=== PATIENT | female | born 1970 | race African-American/Black ===

== ENCOUNTER 2021-08-01 15:01 | Outpatient (RCR) | payer OTHER, SELFPAY ==
--- NOTE | 2021-08-01 16:45 | REHOPWC ---
SEATING EVALUATION NOTIFICATION re: Petra Saleem ; 1970 This is to notify provider that Petra Saleem participated in a power mobility device evaluation today. Recommendations were made specific to patient's needs. Seating Assessment documentation has been completed for detailed information on required equipment. The mobility device provider for this case is [employer].. Please note that no further care plan will be developed on this account. Thank you for referring this patient to [facility]. Please review, sign, date and return this discharge summary TERESA. I have been updated about the patient's current status and I agree with discharge from the above service at this time. Referring Physician Date
== END 2021-10-18 11:59 | disposition home or self-care (01) ==
LOC: ANHPT 15:01
PROVIDERS: PCP Family Medicine; Visit Provider Family Medicine
DX: M54.16 Radiculopathy, lumbar region (principal); M79.7 Fibromyalgia; E11.9 Type 2 diabetes mellitus without complications; R32 Unspecified urinary incontinence
CPT/HCPCS: 97163

== ENCOUNTER 2025-09-04 13:48 | Emergency (ER) | payer OTHER, SELFPAY ==
--- NOTE | ~2025-09-04 | CT_ITS ---
CT abdomen pelvis w con INDICATION:abd pain, flank pain . COMPARISON: None. TECHNIQUE: Axial images of the abdomen and pelvis were obtained following infusion of 100 mL Isovue 300. Dose optimization technique was utilized. FINDINGS: The lung bases are clear. The liver parenchyma is unremarkable. No intrahepatic mass or ductal dilatation is evident. The gallbladder is unremarkable. The pancreas and spleen are normal in appearance. The adrenal glands are symmetric in size. The kidneys demonstrate symmetric uptake and excretion of contrast. No cystic mass is evident. There is no solid mass. There is no hydronephrosis. Evaluation of the stomach and bowel loops are limited due to lack of oral contrast. The appendix is normal in appearance. The bladder and rectum are normal. No free intraperitoneal fluid or air is evident. There is no significant retroperitoneal lymphadenopathy. The aorta, visceral vessels and renal arteries demonstrate normal caliber and patency. The lower thoracic and lumbar vertebrae are in normal alignment. IMPRESSION: No acute abnormality is noted in the abdomen and pelvis. All CT scans at this facility are performed using low dose modulation techniques as appropriate to perform exam including the following: automated exposure control; use of iterative reconstruction technique; adjustment of the mA and/or kV according to patient size (this includes techniques or standardized protocols for targeted exams where dose is matched to indication/reason for exam). Reviewed, dictated and finalized at location S. IMPRESSION: No acute abnormality is noted in the abdomen and pelvis. All CT scans at this facility are performed using low dose modulation techniqu es as appropriate to perform exam including the following: automated exposure c ontrol; use of iterative reconstruction technique; adjustment of the mA and/or kV according to patient size (this includes techniques or standardized protocol s for targeted exams where dose is matched to indication/reason for exam).
[2025-09-04 13:49] VITALS: BP 130/77; PULSE 68; RESP 16; TEMP 36.4; O2SAT 96
--- OUTSIDE RECORDS SUMMARY | 2025-09-04 13:52 | XMS_ITS | Clinical Summary ---
Author Organization [facility] [employer] Address [address] [place] [address] Care Team Providers Care Etl Software Engineer Name Role Phone Carlos A Amezcua Primary Care Provider [phone] Source Comments [facility] [employer],non-owned Affiliates and Associated Physician Practices is amultiple site organization consisting of ambulatory clinics and hospital sitesin [place], [place], [place] and [place]. This disclosure is being madepursuant to the Care Everywhere program and may not contain all information available regarding this patient. Last updated 18.[facility] [employer] Allergies No known active allergies Medications * Be aware that medications may not be up to date on this document. Alwaysverify current medications with the patient. traZODone (DESYREL) 100 MG tablet Take by mouth. 7 Active sertraline (ZOLOFT) 100 MG tablet Take by mouth BID. 7 Active triamcinolone acetonide (KENALOG) 0.1 % cream 7 Active mupirocin (BACTROBAN) 2 % ointment 7 Active insulin regular human (NOVOLIN R) 100 UNIT/ML injection 2 7 Active vitamin D3-cholecalcif solo (CHOLECACIFERO L) 1000 UNITS tablet 0 7 Active atorvastatin (LIPITOR) 10 MG tablet 2 7 Active polyethylene glycol 3350 (MIRALAX) powder 11 7 Active Flunisolide HFA (AEROSPAN) 80 MCG/ACT 6 7 Active dicyclomine (BENTYL) 10 MG capsule 2 7 Active cloNIDine (CATAPRES) 0.1 MG tablet 2 7 Active pioglitazone (ACTOS) 15 MG tablet 0 7 Active losartan-hydro CHLOROthiazide (HYZAAR) 100-25 MG tablet 2 7 Active ondansetron (ZOFRAN) 4 MG tablet 0 7 Active nitroGLYCERIN (NITROSTAT) 0.4 MG tablet 2 7 Active montelukast (SINGULAIR) 10 MG tablet 5 7 Active Aspirin (ASPIRIN LOW DOSE) 81 MG 2 7 Active nystatin (MYCOSTATIN) 694597 UNIT/ML suspension 0 7 Active ferrous sulfate 325 (65 FE) MG tablet 2 7 Active Cholecalcifero l (VITAMIN D3) 400 UNITS tablet Take 400 Units by mouth DAILY. 30 tablet 0 6 Active insulin glargine (LANTUS) vial Inject 50 Units subcutaneously. 10 mL 3 6 Active albuterol-ipra tropium (COMBIVENT RESPIMAT) 20-100 MCG/ACT inhaler Inhale 1 puff by mouth 4X/day. 1 Inhaler 2 6 Active fluticasone propionate (FLONASE) 50 MCG/ACT nasal spray USE 2 SPRAYS NASALLY QD FOR 90 DAYS 0 8 Active meclizine (ANTIVERT) 25 MG tablet TK 1 T PO TID 0 8 Active cetirizine (ZYRTEC) 10 MG tablet TK 1 T PO QD 1 8 Active baclofen (LIORESAL) 10 MG tablet Take 1 tablet by mouth 3 times daily 90 tablet 5 8 Active albuterol (PROVENTIL;DUANE TOLIN) (2.5 MG/3ML) 0.083% nebulizer solution 9 Active VENTOLIN HFA 108 (90 Base) MCG/ACT inhaler 9 Active amLODIPine (NORVASC) 5 MG tablet 9 Active bacitracin (BACITRACIN) 500 UNIT/GM ointment 9 Active Cholestyramine 4 GM/DOSE 9 Active cyclobenzaprin e (FLEXERIL) 10 MG tablet 9 Active fluconazole (DIFLUCAN) 150 MG tablet 9 Active fluticasone-sa lmeterol 113-14 MCG/ACT inhaler 9 Active BASAGLAR KWIKPEN (BASAGLAR) pen 9 Active B-D ULTRAFINE III SHORT PEN 31G X 8 MM needle 9 Active miconazole (MONISTAT) 2 % vaginal cream 9 Active nicotine (NICODERM CQ) 21 MG/24HR patch 9 Active temazepam (RESTORIL) 30 MG capsule 9 Active triamcinolone acetonide (KENALOG) 0.5 % cream 9 Active DULoxetine (CYMBALTA) 60 MG capsule TAKE 1 CAPSULE BY MOUTH EVERY DAY 30 capsule 5 9 Active RANITIDINE 150 MAX STRENGTH 150 MG tablet Take 20 mg by mouth once daily 0 Active DULoxetine (Cymbalta) 60 MG capsule TAKE 1 CAPSULE BY MOUTH TWICE DAILY 60 capsule 2 3 Active ammonium lactate (Lac-Hydrin) 12 % lotion 4 Active bacitracin ointment 4 Active Blood Glucose Monitoring Suppl (Driveway Software Verio Flex System) w/Device KIT as directed 4 Active Symbicort 160-4.5 MCG/ACT inhaler Inhale 2 (two) puffs by mouth 2 times daily 4 Active cimetidine (Tagamet) 400 MG tablet Take 1 (one) tablet by mouth 2 times daily 5 Active docusate sodium (Colace) 100 MG capsule Take 1 (one) capsule by mouth 2 times daily 5 Active Dulaglutide (Trulicity) 1.5 MG/0.5ML SOPN 3 Active Jardiance 25 MG tablet Take 1 (one) tablet by mouth once daily 4 Active vitamin D, ergocalciferol , (Drisdol) 1.25 MG (36231 UT) capsule ergocalciferol (vitamin D2) 1,250 mcg (50,000 unit) capsule 1 Active ezetimibe (Zetia) 10 MG tablet ezetimibe 10 mg tablet 3 Active famotidine (Pepcid) 40 MG tablet 3 Active furosemide (Lasix) 20 MG tablet 5 Active OneTouch Verio test strip 5 Active HYDROcodone-ac etaminophen (Calion) 7.5-325 MG tablet Take 1 (one) tablet by mouth every 6 hours as needed pain 5 Active lamoTRIgine (LaMICtal) 25 MG tablet TAKE 1 TABLET BY MOUTH EVERY DAY FOR 15 DAYS 4 Active Lancets (ONETOUCH DELICA PLUS 33G EXTRA FINE LANCET) 5 Active lidocaine (Lidoderm) 5 % patch 4 Active lurasidone (Latuda) 20 MG tablet TAKE 1 TABLET BY MOUTH EVERY DAY WITH MEALS 4 Active metoprolol succinate XL 24hr (Toprol XL) 50 MG tablet 5 Active ondansetron, disintegrating , (Zofran ODT) 4 MG tablet DISSOLVE 1 TABLET ON THE TONGUE TWICE DAILY 5 Active pantoprazole EC (Protonix) 40 MG tablet 5 Active polyethylene glycol (Nulytely) 420 g solution TAKE DIRECTED BY OFFICE 3 Active phentermine (Adipex-P) 37.5 MG tablet phentermine 37.5 mg tablet 1 Active promethazine (Phenergan) 25 MG tablet TAKE 1/2 TABLET BY MOUTH EVERY 6 HOURS NEEDED FOR NAUSEA 3 Active rosuvastatin (Crestor) 40 MG tablet rosuvastatin 40 mg tablet 3 Active Spiriva HandiHaler 18 MCG inhalation capsule 4 Active Incruse Ellipta 62.5 MCG/ACT inhaler Inhale 1 (one) puff by mouth once daily 4 Active gabapentin (Neurontin) 600 MG tablet 5 Active DULoxetine (Cymbalta) 60 MG capsule Take 1 (one) capsule by mouth 2 times daily 180 capsule 4 5 Active gabapentin (Neurontin) 600 MG tablet Take 1 (one) tablet by mouth 3 times daily 270 tablet 4 5 Active Active Problems Problem Noted Date Diagnosed Date Cerebral infarction, unspecified 11/26/2019 Carpal tunnel syndrome 08/21/2019 Atherosclerotic heart diseas e of [place] coronary artery without angina pectoris 08/21/2019 Type 2 diabetes mellitus with diabetic polyneuro tony 09/11/2017 Type 2 diabetes mellitus with diabetic neuropath y 07/30/2017 Other symptoms and signs inv olving the musculoskeletal system 07/21/2016 Anaclitic depression 02/13/2014 Angina pectoris 02/13/2014 Arthritis 02/13/2014 Encounters Date Type Department Care Team Description 07/21/2025 9:30 AM CDT Office Visit [facility] - Neurology [address] [place] [phone] Lizbeth Painter MD Idiopathic peripheral neuropathy (Primary Dx); Small fiber neuropathy 07/21/2025 Travel from Last 3 Months Immunizations Immunization Administration Dates Next Due PNEUMOCOCCAL PPSV23 10/02/2016 Family History Medical History Relation Name Comments Depression Neg Hx Seizures Neg Hx Social History Tobacco Use Types Packs/Day Years Used Date Smoking Tobacco: Every Day Cigarettes Smokeless Tobacco: Never Alcohol Use Standard Drinks/Week Comments No 0 (1 standard drink = 0.6 oz pur e alcohol) AUDIT-C Answer Date Recorded Q1: How often do you have a drink containing alcohol? Never 07/23/2022 Q2: How many drinks containi ng alcohol do you have on a typical day when you are drinking? Patient does not drink Q3: How often do you have si x or more drinks on one occasion? 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 Gender Identity Not on file Sexual Orientation Not on file Last Filed Vital Signs Vital Sign Reading Time Taken Comments Blood Pressure 129/86 07/21/2025 9:57 AM CDT Pulse 80 07/21/2025 9:57 AM CDT Temperature 36.3 C (97.3 F) 07/14/2024 6:21 PM CDT Respiratory Rate 18 07/14/2024 10:00 PM CDT Oxygen Saturation 98% 07/21/2025 9:57 AM CDT Inhaled Oxygen Concentration - - Weight 117.9 kg (260 lb) 07/21/2025 9:57 AM CDT Height 175.3 cm (5' 9) 07/21/2025 9:57 AM CDT Body Mass Index 38.4 07/21/2025 9:57 AM CDT Plan of Treatment Health Maintenance Due Date Last Done Comments COLOGUARD (AGES 45-75) - COLON CA SCREENING 1972 COLON MONITORING 1972 COLONOSCOPY - COLON CA SCREENING 1972 CT COLONOGRAPHY - COLON CA SCREENING 1972 Colorectal Cancer Screening 1972 FIT - COLON CA SCREENING 1972 FLEX SIG - COLON CA SCREENING 1972 HIV SCREENING 1987 HEPATITIS C SCREENING 06/11/1990 DTAP/TDAP/TD VACCINES (1 - Tdap) 1991 HEPATITIS B VACCINE (1 of 3 - 19+ 3-dose series) 1991 PAP SMEAR 1993 PNEUMOCOCCAL VACCINE 50+ (2 of 2 - PCV) 10/02/2017 10/02/2016 DIABETES RETINOPATHY SCREENING 05/06/2019 DIABETES-FOOT EXAM WITH MONOFILAMENT 05/06/2019 ZOSTER VACCINE (1 of 2) 2022 DIABETES-HGB A1C 08/27/2022 02/25/2022 DEPRESSION SCREENING 11/19/2024 DIABETES - URINE PROTEIN SCREENING 11/19/2024 DIABETES-SERUM CREATININE 07/14/20252023, 03/19/2024, 07/23/2022, Additional history exists COVID-19 VACCINE (2024- season) 2025 01/21/2022, 02/21/2021, 01/28/2021 INFLUENZA VACCINE (#1) 2025 9, 10/15/2017, 12/13/2015 MAMMOGRAM 10/10/2026 10/10/2024, 09/20, 06/13/2016, Additional history exists HIB VACCINE Aged Out No longer eligi ble based on patient's age to complete this topic HPV VACCINE Aged Out No longer eligi ble based on patient's age to complete this topic MENINGOCOCCAL (Group B) VACCINE SHARED DECISION-MAKING Aged Out No longer eligible based on patient's age to complete this topic MENINGOCOCCAL GROUPS A/C/Y/W VACCINE Aged Out No longer eligible based on patient's age to complete this topic Procedures Procedure Name Priority Date/Time Associated Diagnosis Comments COMPREHENSIVE METABOLIC PANEL STAT 07/14/2024 7:53 PM CDT from Last 3 Months or Most Recently Relevant to Health Maintenance Results * (ABNORMAL) COMPREHENSIVE METABOLIC PANEL (07/14/2024 7:53 PM CDT) BUN 10 7 - 26 mg/dL 07/14/2024 8:18 PM [facility] Creatinine 0.76 0.56 - 0.96 mg/dL 07/14/2024 8:18 PM [facility] Sodium 139 136 - 145 mmol/L 07/14/2024 8:18 PM [facility] Potassium 3.8 3.5 - 4.5 mmol/L 07/14/2024 8:18 PM [facility] Chloride 106 98 - 107 mmol/L 07/14/2024 8:18 PM [facility] CO2 27 22 - 29 mmol/L 07/14/2024 8:18 PM [facility] Glucose 143(H) 70 - 115 mg/dL 07/14/2024 8:18 PM [facility] Calcium 10.0 8.4 - 10.2 mg/dL 07/14/2024 8:18 PM [facility] Protein Total 7.8 6.0 - 8.3 g/dL 07/14/2024 8:18 PM [facility] Albumin 3.7 3.4 - 5.0 g/dL 07/14/2024 8:18 PM [facility] Bilirubin Total 0.3 0.2 - 1.2 mg/dL 07/14/2024 8:18 PM [facility] Alkaline Phosphatase 88 40 - 150 U/L 07/14/2024 8:18 PM [facility] ALT 7 5 - 55 U/L 07/14/2024 8:18 PM [facility] AST 15 5 - 34 U/L 07/14/2024 8:18 PM [facility] Anion Gap 6 6 - 16 07/14/2024 8:18 PM [facility] BUN/Creatinine Ratio 13 7 - 23 07/14/2024 8:18 PM [facility] Osmolality Calculated 290 275 - 295 mOsm/kg 07/14/2024 8:18 PM [facility] Albumin/Globulin Ratio 0.9(L) 1.1 - 2.3 07/14/2024 8:18 PM [facility] eGFR by CKD-EPI >90 >=90 mL/min/1.7 3 m2 07/14/2024 8:18 PM [facility] Blood BLOOD SPECIMEN / Unknown Venipuncture / Unknown 07/14/2024 7:53 PM CDT 07/14/2024 8:05 PM [facility] Enrique Estrada PA-C LAB - CHEMISTRY OR DERABLES Final Result [facility] [address] [place] [address], [facility] [phone] from Last 3 Months or Most Recently Relevant to Health Maintenance Insurance [facility] Care Teams Etl Software Engineer Relationship Specialty Start Date End Date Carlos A Amezcua [address] [place] [phone] PCP - General 11/06/17
--- OUTSIDE RECORDS SUMMARY | 2025-09-04 13:52 | XMS_ITS | Encounter Summary ---
Author Organization [facility] Address [address] [place] [address] Care Team Providers Care Dampener Name Role Phone Carlos A Amezcua Primary Care Provider [phone] Reason for Referral * Consultation (Routine) - Closed Specialty Diagnoses / Procedures Referred By Tiki rosa Referred To Contact Neurology Diagnoses New daily persistent headache Carlos A Amezcua [address] [place] [address] Phone: tel: fax: [facility] - Neurology [address] [place] [phone] Phone: tel: fax: Referral ID Status Reason Start Date Expiration Date V isits Requested Visits Authorized [id number] Closed Specialty Services Required 10/21/2024 10/21/2025 1 1 TRUCTION REP Encounter Details Date Type Department Care Team (Latest Contact Info) Description 10/21/2024 Transcribe Orders [facility] - Centralized Scheduling [facility]ly [facility] [place] [id number] Carlos A Amezcua [address] [place] [address] New daily persistent headache Social History Tobacco Use Types Packs/Day Years [...] on file 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 Gender Identity Not on file Sexual Orientation Not on file documented as of this encounter Plan of Treatment Scheduled Referrals Name Type Priority Associated Diagnoses Order Schedule AMB REFERRAL TO NEUROLOGY Outpatient Referral Routine New daily persistent headache 1 Occurrences starting 10/21/2024 until 10/21/2025 documented as of this encounter Visit Diagnoses Diagnosis New daily persistent headache- Primary documented in this encounter Care Teams Dampener Relationship Specialty Start Date End Date Carlos A Amezcua [address] [place] [phone] PCP - General 11/06/17 documented as of this encounter
--- OUTSIDE RECORDS SUMMARY | 2025-09-04 13:52 | XMS_ITS | Encounter Summary ---
Author Organization [facility] Address [address] [facility] [place] [address] Care Team Providers Care Maintenance Man Name Role Phone Carlos A Amezcua Primary Care Provider [phone] Encounter Details Date Type Department Care Team (Late st Contact Info) Description 10/31/2023 Telephone [facility] - Neurology [address] [place] [address], [facility] [address] Lizbeth Painter MD [address] [place] [address] [place] [address] Social History Tobacco Use Types Packs/Day Years [...] on file 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 We received a medication refill request from this patient's pharmacy for Duloxetine 60 MG. Patient needs follow up appointment with Dr. Painter before her medications can be refilled. Thank you, Jose Carlos TMENT HOTEL MANAGER documented in this encounter Plan of Treatment Not on file documented as of this encounter Visit Diagnoses Not on filedocumented in this encounter Additional Health Concerns Infection Onset Date Last Indicated Resolved Time COVID-19 Under Investigation 07/14/2024 07/14/2024 07/14/2024 8:43 PM CDT documented as of this encounter Care Teams Maintenance Man Relationship Specialty Start Date End Date Carlos A Amezcua [address] [place] [phone] PCP - General 11/06/17 documented as of this encounter
--- OUTSIDE RECORDS SUMMARY | 2025-09-04 13:52 | XMS_ITS | Clinical Summary ---
Author Organization [facility] Address [address] [place] [address] Care Team Providers Care Service Architect Name Role Phone Carlos A Amezcua MD Primary Care Provider [phone] Allergies No known active allergies Medications ondansetron (ZOFRAN ODT) 4 MG disintegrating tablet Take 1 tablet (4 mg total) by mouth every 8 (eight) hours as needed for Nausea. 15 tablet 11/14/20 18 Active HYDROcodone-acetam inophen 7.5-325 MG tabletIndications: Acute Pain < 7 Day Supply Take 1 tablet by mouth every 6 (six) hours as needed for Pain. Indications: Acute Pain < 7 Day Supply 15 tablet 03/05/20 21 Active traZODone 100 MG tablet TAKE 3 TABLET BY MOUTH EVERY NIGHT AT BEDTIME 06/14/20 21 Active gabapentin 300 MG capsule 05/15/20 21 Active furosemide 20 MG tablet 06/17/20 21 Active famotidine 20 MG tablet Take 20 mg by mouth 2 (two) times daily. 05/16/20 21 Active ferrous sulfate, 65 mg elemental, (FEROSUL) 325 (65 FE) MG tablet 06/11/20 20 Active vitamin D2, ergocalciferol, 92167 UNITS capsule Take 50,000 Units by mouth once a week. 06/12/20 21 Active DULoxetine 60 MG capsule Take 60 mg by mouth 2 (two) times daily. 03/15/20 21 Active cyclobenzaprine 10 MG tablet TAKE 1 TABLET BY MOUTH EVERY 8 HOURS NEEDED FOR MUSCLE SPASM 05/16/20 21 Active docusate sodium 100 MG capsule 04/14/20 21 Active dicyclomine 10 MG capsule 06/11/20 21 Active cloNIDine 0.1 MG tablet Take 0.1 mg by mouth 2 (two) times daily. 05/29/20 21 Active cimetidine 400 MG tablet Take 400 mg by mouth 2 (two) times daily. 06/12/20 21 Active cetirizine 10 MG tablet 06/17/20 21 Active SYMBICORT 160-4.5 MCG/ACT inhaler 2 puffs 2 (two) times daily. 05/25/20 21 Active baclofen 10 MG tablet 05/15/20 21 Active atorvastatin 10 MG tablet 06/17/20 21 Active ASPIRIN LOW DOSE 81 MG tablet 06/17/20 21 Active amLODIPine 10 MG tablet 06/17/20 21 Active ALPRAZolam 0.25 MG tablet Take 0.25 mg by mouth 3 (three) times daily. 05/01/20 21 Active albuterol (2.5 MG/3ML) 0.083% nebulizer solution 06/17/20 21 Active BASAGLAR KWIKPEN 100 UNIT/ML injection (PEN) ADMINISTER 30 UNITS UNDER THE SKIN EVERY DAY AT BEDTIME 06/03/20 21 Active NOVOLIN R 100 UNIT/ML injection INJECT 10 UNITS UNDER THE SKIN 3 TIMES DAILY 05/17/20 21 Active losartan 50 MG tablet 06/17/20 21 Active meclizine 25 MG tablet 05/19/20 21 Active metoprolol succinate ER 50 MG 24 hr tablet 06/17/20 21 Active nystatin 014027 UNIT/ML suspension SHAKE LIQUID AND TAKE 5 ML BY MOUTH FOUR TIMES DAILY FOR 10 DAYS 04/28/20 21 Active phentermine 37.5 MG tablet phentermine 37.5 mg tablet 06/15/20 21 Active Semaglutide (RYBELSUS) 3 MG Tab 09/02/20 20 Active Social History Tobacco Use Types Packs/Day Years Used Date Smoking Tobacco: Every Day Cigarettes Smokeless Tobacco: Never Alcohol Use Standard Drinks/Week Comments No 0 (1 standard drink = 0.6 oz pur e alcohol) AUDIT-C Answer Date Recorded Frequency of Alcohol Consumption Never 11/14/2018 Average Number of Drinks Not on file 018 Frequency of Binge Drinking Not on file 10/20 Comments No Sex and Gender Information Value Date Recorded Sex Assigned at Not on file Legal Sex Female 11:55 PM CDT Gender Identity Not on file Sexual Orientation Not on file Last Filed Vital Signs Vital Sign Reading Time Taken Comments Blood Pressure 154/89 06/18/2021 6:03 PM CDT Pulse 75 06/18/2021 8:30 PM CDT Temperature 37 C (98.6 F) 06/18/2021 6:03 PM CDT Respiratory Rate 19 06/18/2021 8:30 PM CDT Oxygen Saturation 95% 06/18/2021 8:30 PM CDT Inhaled Oxygen Concentration - - Weight 141.2 kg (311 lb 4.6 oz) 06/18/2021 6:03 PM CDT Height 175.3 cm (5' 9) 06/18/2021 6:03 PM CDT Body Mass Index 45.97 06/18/2021 6:03 PM CDT Plan of Treatment Health Maintenance Due Date Last Done Comments Cervical Cancer Screening Pa p Smear (Age 30 to 64) Every 3 Years 1972 Colorectal Cancer Screening Colonoscopy (10 Years) 1972 Annual Physical 1975 Hepatitis C 1990 DTaP, Tdap and Td Vaccines ( 1 - Tdap) 1991 Hepatitis B Vaccines (1 of 3 - 19+ 3-dose series) 1991 Pneumococcal Vaccine: 50+ Ye ars (1 of 2 - PCV) 1991 Cervical Cancer Screening Pa p with HPV Testing (Age 30 to 64) Every 5 Years 2002 Cervical Cancer Screening with HPV 2002 Mammogram Screening 2012 Zoster Vaccines (1 of 2) 2022 COVID-19 Vaccine ( - 2023-2 5 season) 2025 Influenza Adult (#1) 2025 Hepatitis A Vaccines Aged Out No long er eligible based on patient's age to complete this topic Meningococcal B Vaccine Aged Out No l onger eligible based on patient's age to complete this topic Meningococcal Vaccine Aged Out No lauri yulia eligible based on patient's age to complete this topic RSV Immunizations Under 20 Months Aged Out No longer eligible based on patient's age to complete this topic Insurance [address] [place], [place] [address] Care Teams Service Architect Relationship Specialty Start Date End Date Carlos A Amezcua MD PCP - General FAMILY PRACTICE 11/17/18
--- OUTSIDE RECORDS SUMMARY | 2025-09-04 13:52 | XMS_ITS | Clinical Summary ---
Author Organization [facility] at [facility] Address [address] [place] [address] Care Team Providers Care City Editor Name Role Phone Carlos A Amezcua MD Primary Care Provider [phone] Allergies No known active allergies Medications ALPRAZolam (XANAX) 0.25 mg tablet Take 0.25 mg by mouth 3 (three) times a day 2 Active dicyclomine (BENTYL) 10 mg capsule Take 10 mg by mouth 4 (four) times a day 7 Active gabapentin (NEURONTIN) 300 mg capsule Take 900 mg by mouth 3 (three) times a day 2 Active meclizine (ANTIVERT) 25 mg tablet Take 25 mg by mouth 3 (three) times a day as needed 2 Active ondansetron (ZOFRAN) 4 mg tablet Take 4 mg by mouth 2 (two) times a day as needed 7 Active cetirizine (ZyrTEC) 10 mg tablet Take 10 mg by mouth daily 2 Active pioglitazone (ACTOS) 15 mg tablet Take 15 mg by mouth daily 2 Active Jardiance 10 mg tablet Take 10 mg by mouth daily 2 Active rosuvastatin (CRESTOR) 40 mg tablet Take 40 mg by mouth daily 2 Active losartan (COZAAR) 50 mg tablet Take 50 mg by mouth daily 2 Active cloNIDine (CATAPRES) 0.1 mg tablet Take 0.1 mg by mouth 2 (two) times a day 2 Active phentermine (ADIPEX-P) 37.5 mg tablet Take 37.5 mg by mouth daily 2 Active perphenazine (TRILAFON) 8 mg tablet Take 8 mg by mouth 3 (three) times a day 2 Active albuterol 2.5 mg /3 mL (0.083 %) nebulizer solution Take 3 mL by nebulization every 6 (six) hours as needed 2 Active Symbicort 160-4.5 mcg/actuation inhaler Inhale 2 puffs 2 (two) times a day 2 Active ipratropium-alb uteroL (Combivent Respimat) 20-100 mcg/actuation inhaler Take 1 puff by mouth 4 (four) times a day 6 Active metoprolol XL (TOPROL-XL) 50 mg extended release tablet Take 50 mg by mouth daily 2 Active amLODIPine (NORVASC) 10 mg tablet Take 10 mg by mouth daily 2 Active cimetidine (TAGAMET) 400 mg tablet Take 400 mg by mouth 2 (two) times a day 2 Active BASAGLAR 100 unit/mL (3 mL) pen for injection Inject 30 Units under the skin nightly 2 Active NovoLIN R 100 unit/mL vial for injection Inject 0-10 Units under the skin 3 (three) times a day Per sliding scale 2 Active FeroSuL 325 mg (65 mg iron) tablet Take 325 mg by mouth every 3 (three) days 2 Active Colace 100 mg capsule Take 100 mg by mouth 2 (two) times a day 2 Active montelukast (SINGULAIR) 10 mg tablet Take 10 mg by mouth daily 2 Active ezetimibe (ZETIA) 10 mg tablet Take 10 mg by mouth daily 2 Active furosemide (LASIX) 20 mg tablet Take 20 mg by mouth 2 (two) times a day 2 Active fluticasone propionate (FLONASE) 50 mcg/actuation nasal spray Administer 1 spray into each nostril 2 (two) times a day 2 Active HYDROcodone-kassidy taminophen (NORCO) 7.5-325 mg per tablet Take 1 tablet by mouth every 6 (six) hours as needed 2 Active aspirin 81 mg enteric coated tablet Take 81 mg by mouth daily 2 Active temazepam (RESTORIL) 30 mg capsule Take 30 mg by mouth nightly 2 Active traZODone (DESYREL) 100 mg tablet Take 300 mg by mouth nightly [address] (CYMBALTA) 60 mg capsule Take 60 mg by mouth 2 (two) times a day 2 Active baclofen (LIORESAL) 10 mg tablet Take 10 mg by mouth 3 (three) times a day 2 Active cyclobenzaprine (FLEXERIL) 10 mg tablet Take 10 mg by mouth 3 (three) times a day as needed 2 Active ergocalciferol (VITAMIN D) 50,000 unit capsule Take 1 capsule by mouth once a week Saturdays 2 Active fluconazole (DIFLUCAN) 150 mg tablet Take 150 mg by mouth once a week 2 Active Active Problems Problem Noted Date Diagnosed Date Pneumonia of both lungs due to Mycoplasma pneumo niae 03/03/2022 Assessment & Plan (03/03/2022 7:36 AM CDT): Pt treated with iv Zithromax. Pneumonia due to infectious organism 02/24/2022 Assessment & Plan (02/24/2022 2:46 PM CDT): Pt presented with cough and wheezing and fever and found to have rosy infiltrates.Treat with iv antibioitics Syncope 02/24/2022 Assessment & Plan (02/24/2022 2:47 PM CDT): Pt reportedly passed out while talking o thee phone and found to be hypoxic.Head CT was neg. Hypoxemia 02/24/2022 Assessment & Plan (02/24/2022 2:48 PM CDT): Pt found to be hypoxic with sats in the 80's.Treat with oxygen supplementation and titrate to keep sats above 90 Shortness of breath 02/23/2022 Hyperlipidemia 02/13/2014 Assessment & Plan (02/24/2022 2:45 PM CDT): Cont statins Hypertension 02/13/2014 Assessment & Plan (02/24/2022 2:44 PM CDT): Monitor and control blood pressure Anaclitic depression 02/13/2014 Angina pectoris 02/13/2014 Chronic coronary artery disease 02/13/2014 Diabetic neuropathy 02/13/2014 Arthritis 02/13/2014 Fibromyalgia 02/13/2014 Assessment & Plan (02/24/2022 2:45 PM CDT): Cont current meds Type 2 diabetes mellitus 02/13/2014 Assessment & Plan (02/24/2022 2:49 PM CDT): Monitor and control blood sugars Immunizations Immunization Administration Dates Next Due Pneumococcal Polysaccharide PPV23 10/02/2016 Surgical History Surgery Date Site/Laterality Comments GA REPAIR FIRST ABDOMINAL [place] LL HERNIA Ventral Hernia Repair - (Added by TW Conv) GA DELIVERY ONLY Section - (Added by TW Conv) SKIN GRAFT Medical History Medical History Date Comments CKD (chronic kidney disease) Hypertension Diabetes mellitus Coronary artery disease Depression COPD (chronic obstructive pulmonary disease) HLD (hyperlipidemia) Fibromyalgia Neuropathy Arthritis Carpal tunnel syndrome GERD (gastroesophageal reflux disease) Family History Medical History Relation Name Comments Stroke Cousin Family history of cerebrovascular accident - (Added by TW Conv) Diabetes type II Maternal Grandfather Fam alberto history of type 2 diabetes mellitus - (Added by TW Conv) Hypertension Maternal Grandfather Family history of hypertension - (Added by TW Conv) Kidney failure Maternal Grandfather Famil y history of renal failure - (Added by TW Conv) Diabetes type II Maternal Grandmother Fam alberto history of type 2 diabetes mellitus - (Added by TW Conv) Hypertension Maternal Grandmother Family history of hypertension - (Added by TW Conv) Kidney failure Maternal Grandmother Famil y history of renal failure - (Added by TW Conv) Diabetes type II Mother Family hist ory of type 2 diabetes mellitus - (Added by TW Conv) Hypertension Mother Family history of hypertension - (Added by TW Conv) Kidney failure Mother Family histor y of renal failure - (Added by TW Conv) Stroke Mother's Brother Family hist ory of cerebrovascular accident - (Added by TW Conv) Diabetes type II Mother's Sister 1 Family history of type 2 diabetes mellitus - (Added by TW Conv) Hypertension Mother's Sister 2 Family his tory of hypertension - (Added by TW Conv) Kidney failure Mother's Sister 3 Family h istory of renal failure - (Added by TW Conv) Stroke Mother's Sister 4 Family his tory of cerebrovascular accident - (Added by TW Conv) Leukemia Paternal Grandmother Family history of leukemia - (Added by Conv) Breast cancer Neg Hx Relation Name Status Comments Cousin Maternal Grandfather Maternal Grandmother Mother Mother's Brother Mother's Sister 1 Mother's Sister 2 Mother's Sister 3 Mother's Sister 4 Paternal Grandmother Social History Tobacco Use Types Packs/Day Years Used Date Smoking Tobacco: Former Cigarettes 0 02/16/2007 - 02/16/2022 Smokeless Tobacco: Never AUDIT-C Answer Date Recorded Q1: How often do you have a drink containing alc ohol? Never 02/23/2022 Average Number of Drinks Not on file 022 Frequency of Binge Drinking Not on file 05/2022 Personal Safety Answer Date Recorded Have you ever been in or are you currently in a harmful physical or emotional relationship or is someone making you feel afraid or unsafe? Denies 07/16/2023 Comments No Sex and Gender Information Value Date Recorded Sex Assigned at Not on file Legal Sex Female 10:40 PM [facility] Gender Identity Not on file Sexual Orientation Not on file Obstetrics History Para Term AB IAB SAB Ectopic Multiple Livin g Live Births 6 6 6 Date Outcome GA Total Labor Labor/2nd/3rd Weight Sex Type Anes PTL Ifrah A1 A5 Name Clin Term Term Term Term Term Term Last Filed Vital Signs Vital Sign Reading Time Taken Comments Blood Pressure 124/76 07/16/2023 3:21 PM CDT Pulse 72 07/16/2023 3:21 PM CDT Temperature 36.7 C (98.1 F) 07/16/2023 3:21 PM CDT Respiratory Rate 16 07/16/2023 3:21 PM CDT Oxygen Saturation 100% 07/16/2023 3:21 PM CDT Inhaled Oxygen Concentration - - Weight 121.6 kg (268 lb) 03/17/2025 1:55 PM CDT Height 175.3 cm (5' 9) 03/17/2025 1:55 PM CDT Body Mass Index 39.58 03/17/2025 1:55 PM CDT Plan of Treatment Health Maintenance Due Date Last Done Comments Albumin Creatinine Ratio, Urine 1972 Cervical Cancer Screening 1972 Colon Cancer Screening-Colonoscopy 1972 Depression Screening 1972 Hepatitis C Screening 1972 Dilated Eye Exam 1972 Foot Exam 1972 DTaP/Tdap/Td Vaccine (1 - Tdap) 1983 Hepatitis B Screening 1990 Regular Well Visit/Exam 18-64 1990 Pneumococcal vaccine <65 (2 of 2 - PCV) 10/02/2017 10/02/2016 Lipid Panel 06/18/2018 06/18/2017, 11/20, 12/11/2015, Additional history exists Zoster Vaccine (1 of 2) 2022 Hemoglobin A1C 08/27/2022 02/25/2022, 11/20, 12/13/2015, Additional history exists eGFR 03/03/2023 03/03/2022, 02/17, 03/01/2022, Additional history exists Covid-19 Vaccine (2024-2 6 season) 2025 01/21/2022, 02/21/2021, 01/28/2021 Influenza Vaccine (#1) 2025 Breast Cancer Screening-Mammogram 10/10/2025 10/10/2024, 06/13/2016, 02/19/2013 Lung Cancer Screening 03/18/2026 03/17/2025 Procedures Procedure Name Priority Date/Time Associated Diagnosis Comments CT LUNG CANCER SCREENING Schedule Routine, Read Routine (OP Routine) 03/17/2025 1:54 PM CDT Nicotine dependence, cigarettes, uncomplicated SCREENING MAMMOGRAM BILATERAL W LUIS M Schedule Routine, Read Routine (OP Routine) 10/10/2024 8:30 AM [facility] Screening mammogram, encounter for EGFR Routine 03/03/2022 5:54 AM CDT HEMOGLOBIN A1C Routine 02/25/2022 4:32 AM CDT TNI WITH LIPID PANEL Routine 06/18/2017 7:19 PM CDT from Last 3 Months or Most Recently Relevant to Health Maintenance Results * CT Lung Cancer Screening (03/17/2025 1:54 PM CDT) Anatomical Region Laterality Modality Chest N/A Computed Tomogra phy 03/26/2025 11:5 4 AM CDT Narrative 03/26/2025 12:00 PM CDT EXAM DESCRIPTION: CT LUNG CANCER SCREENING REASON FOR STUDY: Screening CT of the chest in a current smoker with a 34 pack year smoking history. Additional history: History of chronic lung disease.. TECHNIQUE: Low dose CT scan of the chest was performed without intravenous contrast using helical scanning technique. The exam extends from the lung apices through the lung bases. Automatic exposure control was used as a dose optimization technique. NOTE: This study was performed for the specific purposes of lung cancer screening and is not an alternative to diagnostic chest CT. RADIATION DOSE: CT dose index volume (CTDIvol) = 6.10 mGy COMPARISON: 02/28/2022 FINDINGS: SMOKING RELATED LUNG DISEASE: There are mild emphysematous changes of lungs with scattered mild subsegmental atelectasis and scarring. There is no definite evidence of a pneumothorax. There are scattered mild bronchial wall thickening, which is likely related to mild chronic bronchitis/bronchiolitis. There is no definite evidence of a focal consolidation or pleural effusion. LUNG NODULES: There are scattered small pulmonary nodules noted. For example, there is a subtle 0.3 cm pulmonary nodule in the central right upper lobe (axial image 48). There is a subtle 0.4 cm ground-glass pulmonary nodule in the posterior central right upper lobe (axial image 70). There is a 0.4 cm pulmonary nodule in the medial right lower lobe (axial image 203). There is a subtle 0.3 cm pulmonary nodule in the lateral right lower lobe (axial image 220). There is a subtle 0.3 cm pulmonary nodule in the medial left lower lobe (axial image 170). CORONARY ARTERY CALCIFICATION: Present. OTHER: The heart size is stable. There is a small amount of pericardial fluid noted, similar to the prior study. There are atherosclerotic changes of the coronary vessels and thoracic aorta. There is no definite unenhanced CT evidence of mediastinal, hilar, or axillary lymphadenopathy. There are scattered subcentimeter mediastinal lymph nodes noted with largest measuring 0.5 cm in the subcarinal region (axial image 125). There are scattered subcentimeter axillary lymph nodes noted bilaterally with largest measuring 0.5 cm on the right (axial image 97) and 0.7 cm on the left (axial image 76). There is a small hiatal hernia. The visualized portions of the bilateral adrenal glands are grossly symmetrical and unremarkable. There is mild osteopenia with degenerative changes of the spine. IMPRESSION: Scattered small pulmonary nodules with the largest measuring up to 0.4 cm. Mild emphysematous changes of lungs with scattered mild subsegmental atelectasis and scarring. Scattered mild bronchial wall thickening, which is likely related to mild chronic bronchitis/bronchiolitis. Lung-RADS category 2: Benign appearance or behavior. Recommendation: Low dose Screening CT of chest in 12 months. THIS IS AN ELECTRONICALLY VERIFIED FINAL REPORT 03/26/2025 12:00 PM - Electronically signed by Sheila GLOVER T: Report ID: [id number] Reading Location: [place] [id number] Procedure Note Sheila Ibrahim, - 03/26/2025 EXAM DESCRIPTION: CT LUNG CANCER SCREENING REASON FOR STUDY: Screening CT of the chest in a current smoker with a34 pack year smoking history. Additional history: History of chronic lung disease.. TECHNIQUE: Low dose CT scan of the chest was performed without intravenous contrast using helical scanning technique. The exam extends from the lung apices through the lung bases. Automatic exposure control was used as adose optimization technique. NOTE: This study was performed for the specific purposes of lung cancer screening and is not an alternative to diagnostic chest CT. RADIATION DOSE: CT dose index volume (CTDIvol) = 6.10 mGy COMPARISON: 02/28/2022 FINDINGS: SMOKING RELATED LUNG DISEASE: There are mild emphysematouschanges of lungs with scattered mild subsegmental atelectasis and scarring. Thereis no definite evidence of a pneumothorax. There are scattered mildbronchial wall thickening, which is likely related to mild chronic bronchitis/bronchiolitis. There is no definite evidence of a focal consolidation or pleural effusion. LUNG NODULES: There are scattered small pulmonary nodules noted. For example, there is a subtle 0.3 cm pulmonary nodule in the central rightupper lobe (axial image 48). There is a subtle 0.4 cm ground-glass pulmonarynodule in the posterior central right upper lobe (axial image 70). There is a0.4 cm pulmonary nodule in the medial right lower lobe (axial image 203). Thereis a subtle 0.3 cm pulmonary nodule in the lateral right lower lobe (axialimage 220). There is a subtle 0.3 cm pulmonary nodule in the medial left lowerlobe (axial image 170). CORONARY ARTERY CALCIFICATION: Present. OTHER: The heart size is stable. There is a small amount of pericardial fluid noted, similar to the prior study. There are atheroscleroticchanges of the coronary vessels and thoracic aorta. There is no definite unenhanced CT evidence of mediastinal, hilar, oraxillary lymphadenopathy. There are scattered subcentimeter mediastinal lymphnodes noted with largest measuring 0.5 cm in the subcarinal region (axial image 125). There are scattered subcentimeter axillary lymph nodes noted bilaterally with largest measuring 0.5 cm on the right (axial image 97)and 0.7 cm on the left (axial image 76). There is a small hiatal hernia. The visualized portions of the bilateral adrenal glands are grossly symmetrical and unremarkable. There is mild osteopenia with degenerative changes of the spine. IMPRESSION: Scattered small pulmonary nodules with the largest measuring up to 0.4cm. Mild emphysematous changes of lungs with scattered mild subsegmental atelectasis and scarring. Scattered mild bronchial wall thickening, which is likely related to mild chronic bronchitis/bronchiolitis. Lung-RADS category 2: Benign appearance or behavior. Recommendation: Low dose Screening CT of chest in 12 months. THIS IS AN ELECTRONICALLY VERIFIED FINAL REPORT 03/26/2025 12:00 PM - Electronically signed by Sheila BeaverO. PS T: Report ID: [id number] Reading Location: [id number] us Son Francis MD IMG CT PROCEDURES Final Res ult * Screening Mammogram Bilateral W Luis M (10/10/2024 8:30 AM [facility]) Anatomical Region Laterality Modality Breast Bilateral Mammography Impressions 10/10/2024 9:25 AM [facility] BI-RADS ATLAS category (overall): 1 - Negative There is no mammographic evidence of malignancy. A 1 year screening mammogram is recommended. The patient has been or will be contacted. We recommend annual screening mammography for women at average risk of breast cancer beginning at age 40, based on guidelines of the [place] [employer] (ACR Practice Parameter for the Performance of Screening and Diagnostic Mammography) and [place] [employer]. For women with and elevated risk of breast cancer, please refer to the ACR Practice Parameter for specific screening recommendations. The patient will be entered into a reminder system with a target due date of 1 year for her next screening exam. Narrative 10/10/2024 9:25 AM [facility] Screening Mammogram Bilateral W Luis M: 10/10/24 The study was acquired using full field digital technology and interpreted from soft copy. 2D digital mammographic views, as well as 3D digital tomosynthesis were performed in the CC and MLO projections. This study was resulted using Computer-Aided Detection (CAD). CLINICAL: Screening mammogram, encounter for. No relevant medical history has been documented for this patient. History of breast cancer in Neg Hx. COMPARISONS: 06/13/2016 Diagnostic Mammogram Bilateral W Luis M BREAST TISSUE: The breasts are almost entirely fatty. FINDINGS: No suspicious masses, suspicious calcifications, or other suspicious findings are seen within either breast. There has been no suspicious change. us Carlos A Amezcua MD IMG MAMMO PROCEDURES Final Result * eGFR (03/03/2022 5:54 AM CDT) eGFR 106 mL/min/1. 73 m2 PREET LOVE Comment: Interpretive Data Reference Interval Normal >/= 90 mL/min/1.73m2 Mildly decreased* 60 - 89 mL/min/1.73m2 Mildly to moderately decreased 45 - 59 mL/min/1.73m2 Moderately to severely decreased 30 - 44 mL/min/1.73m2 Severely decreased 15 - 29 mL/min/1.73m2 Kidney Failure < 15 mL/min/1.73m2 *Relative to young adult level Estimated glomerular filtration rate is determined by the 2020 CKD-EPI equation recommended by the National Kidney Foundation (A Unifying Approach to GFR Estimation: Recommendations of the NKF-ASK Task Force on Reassessing the Inclusion of Race in Diagnosing Kidney Disease, JASN 2020). The CKD-EPI equation should not be used for patients with unstable renal function and has not been validated in children and those over 70. Current interpretive data was last reviewed 2021. Blood 03/03/2022 5:54 AM CDT 03/03/2022 6:37 AM CDT Chichi Julian MD LAB BLOOD ORDERABLES F inal Result Performing Organization Address [facility] de Phone Number [place] [address] [facility] [place], [place] [id number] * (ABNORMAL) Hemoglobin A1c (02/25/2022 4:32 AM CDT) [facility] Signature Hgb A1C 7.7(H) 4.0 - 5.6 % PREET Estimated Average Glucose 174 mg/dL PREET Comment: The ADA recommends reporting an estimated Average Glucose (eAG) with all Hemoglobin A1c results using the equation derived from a study of 507 normal and diabetic adults. Minority populations were underrepresented and children were not included. (Diabetes Care 31:3478-6586, 2008). The eAG is not equivalent to a fasting glucose. Blood 02/25/2022 4:32 AM CDT 02/25/2022 5:13 AM CDT Chichi Julian MD LAB BLOOD ORDERABLES F inal Result Performing Organization Address [facility] Co de Phone Number [facility] [place] [address] * TNI with LIPID PANEL (06/18/2017 7:19 PM CDT) Troponin I < 0.300 0.000 - 0.300 ng/mL Comment: Reference using DESIREE Chemiluminescence Negative: Repeat in 4-6 hours as indicated. Triglycerides 90 0 - 199 mg/dL Comment:12 hr pc highly jenny mmended for Triglyceride Cholesterol 184 0 - 199 mg/dL Comment: Borderline: 200-239 High Risk: >239 HDL Cholesterol 53 40 - 60 mg/dL Comment: Major Risk < 40 mg/dL Moderate Risk 40-60 mg/dL Negative Risk > 60 mg/dL LDL Cholesterol, Calc 113 0 - 130 mg/dL Comment:High Risk > 159 mg/d L Cholesterol/HDL Ratio 3.5 Comment: Cholesterol / HDL Ratio 3.5:1 or less is desirable. Cholesterol / HDL Ratio greater than 5:1 is considered higher risk for developing heart disease. 06/18/2017 7:19 PM CDT 06/18/2017 7:31 PM CDT Sue Freeman Bryson LAB BLOOD ORDERABLES Mary l Result [facility] HISTORICAL RESULTS from Last 3 Months or Most Recently Relevant to Health Maintenance Insurance [facility] Advance Directives For more information, please contact: [phone] * Full Code (Latest Code Status on File) Date Activated Date Inactivated Comments 02/24/2022 9:07 AM 03/03/2022 8:52 PM Care Teams City Editor Relationship Specialty Start Date End Date Carlos A Amezcua MD [address] [place] [id number] PCP - General Family Medicine 07/05/21
--- NOTE | 2025-09-04 15:07 | ED.GENADULT ---
HPI - General Adult General Chief complaint: Abdominal Pain <Monica Damon March, INHALATION THERAPIST - Last Filed: 09/04/25 15:17> Stated complaint: abd pain <Monica Damon March, INHALATION THERAPIST - Last Filed: 09/04/25 15:17> Time Seen by Provider: 09/04/25 15:08 <Monica Damon March, INHALATION THERAPIST - Last Filed: 09/04/25 15:17> Focused HPI: Petra Saleem is a 55 y/o female with complaints of abdominal pain across her mid upper abdomen that radiates around to her lower back, and she has been going to her PCP, but she states she isn't getting all of the medications that she needs, and he told her she is in kidney failure and she is concerned that she is getting worse. She states that she is having some nausea/vomiting. SHe feels SOB when she lays flat and wants her kidneys checked again. GENERAL: well-nourished, and in no acute distress. HEAD: Normocephalic, atraumatic. CHEST: Clear to auscultation. ?No respiratory distress. HEART: Regular rate and rhythm.? NEURO: ?Alert and oriented x3. Patient screened in triage and initial orders placed.? ?Additional care and disposition to be based upon?diagnostic testing and treatment. <Monica Damon March, INHALATION THERAPIST - Last Filed: 09/04/25 15:17> Focused HPI: Petra Saleem is a 55 y/o female with complaints of abdominal pain across her mid upper abdomen that radiates around to her lower back, and she has been going to her PCP, but she states she isn't getting all of the medications that she needs, and he told her she is in kidney failure and she is concerned that she is getting worse. She states that she is having some nausea/vomiting. She feels SOB when she lays flat and wants her kidneys checked again. Pain has been ongoing over the last month GENERAL: well-nourished, and in no acute distress. HEAD: Normocephalic, atraumatic. CHEST: Clear to auscultation. ?No respiratory distress. HEART: Regular rate and rhythm.? NEURO: ?Alert and oriented x3. Patient screened in triage and initial orders placed.? ?Additional care and disposition to be based upon?diagnostic testing and treatment. <Mahi L. Whiteside, PA-C - Last Filed: 09/04/25 20:56> Related Data Allergies/adverse reactions: Allergies Allergy/AdvReac Type Severity Reaction Status Date / Time No Known Allergies Allergy Verified 09/04/25 13:50 <Monica Morgan, INHALATION THERAPIST - Last Filed: 09/04/25 15:17> Review of Systems Review of Systems: All systems reviewed & are unremarkable except as noted in HPI and below <Mahi Whiteside PA-C - Last Filed: 09/04/25 20:56> PMFSH Past Medical History Medical History: Medical History (Updated 09/04/25 @ 20:45 by Mahi Whiteside PA-C) Hypertension Diabetes mellitus <Monica Morgan, INHALATION THERAPIST - Last Filed: 09/04/25 15:17> Exam Narrative: GENERAL: Well-appearing, well-nourished, and in no acute distress. HEAD: Normocephalic, atraumatic. EYES: EOMI. CHEST: Clear to auscultation. No respiratory distress. No wheezes rales or rhonchi HEART: Regular rate and rhythm. No murmur heard. Normal peripheral pulses. ABDOMEN: Soft, nondistended, normal active bowel sounds. Tender to palpation in the epigastrium, without guarding EXTREMITIES: Normal range of motion. No edema. SKIN: Warm, dry, no rash. NEURO: No focal deficits. Alert and oriented x3. PSYCH: Normal mood and affect <Mahi Whiteside PA-C - Last Filed: 09/04/25 20:56> Course Vital Signs Vital signs: Vital Signs Temperature 97.6 F 09/04/25 13:49 Pulse Rate 68 09/04/25 13:49 Respiratory Rate 16 09/04/25 13:49 Blood Pressure 130/77 09/04/25 13:49 Pulse Oximetry 96 09/04/25 13:49 Temperature 97.6 F 09/04/25 13:49 Pulse Rate 62 09/04/25 18:44 Respiratory Rate 20 09/04/25 18:44 Blood Pressure 131/101 H 09/04/25 18:44 Pulse Oximetry 100 09/04/25 18:44 <Monica Morgan, INHALATION THERAPIST - Last Filed: 09/04/25 15:17> Vital Signs Temperature 97.6 F 09/04/25 13:49 Pulse Rate 68 09/04/25 13:49 Respiratory Rate 16 09/04/25 13:49 Blood Pressure 130/77 09/04/25 13:49 Pulse Oximetry 96 09/04/25 13:49 Temperature 97.6 F 09/04/25 13:49 Pulse Rate 62 09/04/25 18:44 Respiratory Rate 20 09/04/25 18:44 Blood Pressure 131/101 H 09/04/25 18:44 Pulse Oximetry 100 09/04/25 18:44 <Mahi Whiteside PA-C - Last Filed: 09/04/25 20:56> Medical Decision Making MDM Narrative Medical decision making narrative: Patient presents emergency department for mid abdominal pain. Ongoing over the last month. She is afebrile nontoxic appearing. Cbc without leukocytosis. Metabolic panel without concerning findings. Lipase is normal. Urine without evidence of infection. CT abdomen pelvis without acute findings. Patient ended up leaving before being updated on imaging results, or receiving discharge instructions <Mahi Whiteside PA-C - Last Filed: 09/04/25 20:56> Differential Diagnosis Differential Diagnosis: GERD, esophagitis, biliary colic, diverticulitis, kidney stone, UTI <Mahi Whiteside PA-C - Last Filed: 09/04/25 20:56> Vital Signs Vital Signs: Vital Signs Temperature 97.6 F 09/04/25 13:49 Pulse Rate 68 09/04/25 13:49 Respiratory Rate 16 09/04/25 13:49 Blood Pressure 130/77 09/04/25 13:49 Pulse Oximetry 96 09/04/25 13:49 Temperature 97.6 F 09/04/25 13:49 Pulse Rate 62 09/04/25 18:44 Respiratory Rate 20 09/04/25 18:44 Blood Pressure 131/101 H 09/04/25 18:44 Pulse Oximetry 100 09/04/25 18:44 <Monica Morgan, VERNA - Last Filed: 09/04/25 15:17> Vital Signs Temperature 97.6 F 09/04/25 13:49 Pulse Rate 68 09/04/25 13:49 Respiratory Rate 16 09/04/25 13:49 Blood Pressure 130/77 09/04/25 13:49 Pulse Oximetry 96 09/04/25 13:49 Temperature 97.6 F 09/04/25 13:49 Pulse Rate 62 09/04/25 18:44 Respiratory Rate 20 09/04/25 18:44 Blood Pressure 131/101 H 09/04/25 18:44 Pulse Oximetry 100 09/04/25 18:44 <Mahi Whiteside PA-C - Last Filed: 09/04/25 20:56> Lab Data Lab results reviewed: Yes I reviewed the patient's lab results. <Mahi Whiteside PA-C - Last Filed: 09/04/25 20:56> Result diagrams: 09/04/25 16:30 09/04/25 16:30 <Monica Morgan APRN - Last Filed: 09/04/25 15:17> Labs: Lab Results 09/04/25 Range/Units 16:30 WBC 7.7 (4.5-10.0) K/mm3 RBC 5.17 (4.2-5.4) M/mm3 Hgb 13.7 (12.0-15.0) g/dL Hct 44.1 (37.0-47.0) % MCV 85.3 (80-100) fl MCH 26.5 (26-34) pg MCHC 31.1 L (32-36) g/dl RDW 14.1 (11.5-14.5) % Plt Count 293 (150-375) k/mm3 MPV 9.4 (7.4-10.4) fl Immature Gran % (Auto) 0.3 (0-0.5) % Neut % (Auto) 31.6 L (45.5-73.1) % Lymph % (Auto) 55.6 H (18.3-44.2) % Aurora % (Auto) 10.4 H (2.6-8.5) % Eos % (Auto) 1.7 (0-4.4) % Baso % (Auto) 0.4 (0.2-1.2) % Lymph # (Auto) 4.28 H (0.9-3.2) K/mm3 Aurora # (Auto) 0.8 H (0.1-0.6) K/mm3 Eos # (Auto) 0.1 (0-0.3) K/mm3 Baso # (Auto) 0.0 (0.0-0.1) K/mm3 Abs Immat Gran (auto) 0.02 (0.00-0.031) K/mm3 Absolute Neuts (auto) 2.4 (1.3-6.7) K/mm3 Absolute Nucleated RBC 0.000 (0.0-0.012) K/mm3 Nucleated RBC % 0.0 (0.0-0.2) % Sodium 136 L (137-145) mmol/L Potassium 4.3 (3.4-5.0) mmol/L Chloride 102 (98-107) mmol/L Carbon Dioxide 29 (22-30) mmol/L Anion Gap 5 (4-12) mmol/L BUN 14 (7-17) mg/dL Creatinine 0.67 L (0.7-1.0) mg/dL Estim Creat Clear Calc 115 ml/min Estimated GFR > 60 (59 - ) Glucose 187 H (65-110) mg/dL Calcium 9.8 (8.4-10.2) mg/dL Total Bilirubin 0.5 (0.2-1.3) mg/dL AST 25 (14-36) U/L ALT 16 (6-35) U/L Alkaline Phosphatase 104 (38-126) U/L Total Protein 8.2 (6.3-8.2) g/dL Albumin 4.2 (3.5-5.1) g/dL Lipase 66 (23-300) U/L Urine Color Yellow (Yellow) Urine Appearance Cloudy H (Clear) Urine pH 5.5 (5.0-9.0) Ur Specific Huxley 1.015 (1.001-1.035) Urine Protein Negative (Negative) mg/dL Urine Glucose (UA) Negative (Negative) mg/dL Urine Ketones Negative (Negative) mg/dL Ur Blood (Man) Negative (Negative) Urine Nitrate Negative (Negative) Urine Bilirubin Negative (Negative) Urine Urobilinogen 1.0 (<2.0) mg/dL Leukocyte Esterase Rfl Trace H (Negative) MECHELLE/UL Urine RBC 0-2 (0-2) /hpf Urine WBC 0-5 (0-3) /hpf Ur Squamous Epith Cells Occasional (Few) /hpf Urine Bacteria None seen /hpf Urine Casts 0-2 <Monica Morgan, INHALATION THERAPIST - Last Filed: 09/04/25 15:17> Lab Results 09/04/25 Range/Units 16:30 WBC 7.7 (4.5-10.0) K/mm3 RBC 5.17 (4.2-5.4) M/mm3 Hgb 13.7 (12.0-15.0) g/dL Hct 44.1 (37.0-47.0) % MCV 85.3 (80-100) fl MCH 26.5 (26-34) pg MCHC 31.1 L (32-36) g/dl RDW 14.1 (11.5-14.5) % Plt Count 293 (150-375) k/mm3 MPV 9.4 (7.4-10.4) fl Immature Gran % (Auto) 0.3 (0-0.5) % Neut % (Auto) 31.6 L (45.5-73.1) % Lymph % (Auto) 55.6 H (18.3-44.2) % Aurora % (Auto) 10.4 H (2.6-8.5) % Eos % (Auto) 1.7 (0-4.4) % Baso % (Auto) 0.4 (0.2-1.2) % Lymph # (Auto) 4.28 H (0.9-3.2) K/mm3 Aurora # (Auto) 0.8 H (0.1-0.6) K/mm3 Eos # (Auto) 0.1 (0-0.3) K/mm3 Baso # (Auto) 0.0 (0.0-0.1) K/mm3 Abs Immat Gran (auto) 0.02 (0.00-0.031) K/mm3 Absolute Neuts (auto) 2.4 (1.3-6.7) K/mm3 Absolute Nucleated RBC 0.000 (0.0-0.012) K/mm3 Nucleated RBC % 0.0 (0.0-0.2) % Sodium 136 L (137-145) mmol/L Potassium 4.3 (3.4-5.0) mmol/L Chloride 102 (98-107) mmol/L Carbon Dioxide 29 (22-30) mmol/L Anion Gap 5 (4-12) mmol/L BUN 14 (7-17) mg/dL Creatinine 0.67 L (0.7-1.0) mg/dL Estim Creat Clear Calc 115 ml/min Estimated GFR > 60 (59 - ) Glucose 187 H (65-110) mg/dL Calcium 9.8 (8.4-10.2) mg/dL Total Bilirubin 0.5 (0.2-1.3) mg/dL AST 25 (14-36) U/L ALT 16 (6-35) U/L Alkaline Phosphatase 104 (38-126) U/L Total Protein 8.2 (6.3-8.2) g/dL Albumin 4.2 (3.5-5.1) g/dL Lipase 66 (23-300) U/L Urine Color Yellow (Yellow) Urine Appearance Cloudy H (Clear) Urine pH 5.5 (5.0-9.0) Ur Specific Huxley 1.015 (1.001-1.035) Urine Protein Negative (Negative) mg/dL Urine Glucose (UA) Negative (Negative) mg/dL Urine Ketones Negative (Negative) mg/dL Ur Blood (Man) Negative (Negative) Urine Nitrate Negative (Negative) Urine Bilirubin Negative (Negative) Urine Urobilinogen 1.0 (<2.0) mg/dL Leukocyte Esterase Rfl Trace H (Negative) MECHELLE/UL Urine RBC 0-2 (0-2) /hpf Urine WBC 0-5 (0-3) /hpf Ur Squamous Epith Cells Occasional (Few) /hpf Urine Bacteria None seen /hpf Urine Casts 0-2 <Mahi Whiteside PA-C - Last Filed: 09/04/25 20:56> Imaging Data Radiologist's impression: ITS Impressions Abdomen/Pelvis CT 09/04/25 19:47 IMPRESSION: No acute abnormality is noted in the abdomen and pelvis. All CT scans at this facility are performed using low dose modulation techniques as appropriate to perform exam including the following: automated exposure control; use of iterative reconstruction technique; adjustment of the mA and/or kV according to patient size (this includes techniques or standardized protocols for targeted exams where dose is matched to indication/reason for exam). <JOHN Dawson Filed: 09/04/25 20:56> Critical Care Time Critical Care Time Critical Care Time: No <JOHN Dawson Last Filed: 10/17/25 20:56> Discharge Plan Discharge Clinical Impression: Abdominal pain Qualifiers: Abdominal location: epigastric Qualified Code(s): R10.13 - Epigastric pain <Monica Damon March Last Filed: 09/04/25 15:17> Patient Disposition: Home <Monica Damon March,N Last Filed: 09/04/25 15:17> Condition: Stable <Monica Damon March,N - Last Filed: 09/04/25 15:17> Instructions: Abdominal Pain (ED) <Monica Damon March, Last Filed: 09/04/25 15:17> Additional Instructions: Return to the ER if you experience fever, abdominal pain with nausea and vomiting, you are unable to keep down liquids or solids, or any other symptoms that are concerning to you Avoid spicy/acidic foods. Avoid eating just before bedtime. Avoid anti-inflammatories. Take Pantoprazole as prescribed Follow up with your primary care doctor <Monica Damon March, - Last Filed: 09/04/25 15:17> Patient Language: Korean <Monica Damon March, Last Filed: 09/04/25 15:17> Prescriptions: New pantoprazole 40 mg tablet,delayed release (DR/EC) 40 mg PO HS 28 Days Qty: 28 0RF <Monica Damon March, Last Filed: 09/04/25 15:17> Follow-up/Referrals: Goldie,Carlos A Camara MD [Primary Care Provider, Unknown] <Monica Damon March, Last Filed: 09/04/25 15:17>
[2025-09-04 16:40] LABS: Hematocrit 44.1 % (37.0-47.0); Hemoglobin 13.7 g/dL (12.0-15.0); Immature Granulocyte Percent A 0.3 % (0-0.5); Lymphocytes Absolute Auto 4.28 K/mm3 (0.9-3.2); Mean Corpuscular HGB Conc 31.1 g/dl (32-36); Mean Corpuscular Hemoglobin 26.5 pg (26-34); Mean Corpuscular Volume 85.3 fl (80-100); Nucleated Red Blood Cells Absolute Auto 0.000 K/mm3 (0.0-0.012); Nucleated Red Blood Cells Perc 0.0 % (0.0-0.2); Platelet Count Result 293 k/mm3 (150-375); Red Blood Count 5.17 M/mm3 (4.2-5.4); White Blood Count 7.7 K/mm3 (4.5-10.0)
[2025-09-04 16:44] LABS: Add Urine Microscopic? YES; Appearance Urine Cloudy (Clear); Glucose Urine UA Negative (Negative); Leukocyte Esterase Ur Trace LEU/UL (Negative); Nitrate Urine Negative (Negative); Non Pathogenic Casts 0-2; Specific Grav Ur 1.015 (1.001-1.035)
[2025-09-04 16:58] LABS: Alanine Aminotransferase 16 U/L (6-35); Albumin Level 4.2 g/dL (3.5-5.1); Alkaline Phosphatase 104 U/L (38-126); Anion Gap 5 mmol/L (4-12); Aspartate Amino Transferase 25 U/L (14-36); Bilirubin,Total 0.5 mg/dL (0.2-1.3); Blood Urea Nitrogen 14 mg/dL (7-17); Calcium 9.8 mg/dL (8.4-10.2); Carbon Dioxide 29 mmol/L (22-30); Chloride 102 mmol/L (98-107); Estimated CRCL calculation 115 ml/min; Estimated Glomerular Filt Rate > 60; Glucose 187 mg/dL (65-110); Lipase 66 U/L (23-300); Potassium 4.3 mmol/L (3.4-5.0); Sodium 136 mmol/L (137-145); Total Protein 8.2 g/dL (6.3-8.2)
[2025-09-04 18:44] VITALS: BP 131/101; PULSE 62; RESP 20; O2SAT 100
--- OUTSIDE RECORDS SUMMARY | 2025-09-04 18:57 | XMS_ITS | Encounter Summary ---
Author Organization [facility] Health Address [address] [place] [address] Care Team Providers Care Inside Sales Consultant Name Role Phone Carlos A Amezcua Primary Care Provider [phone] Reason for Referral * Consultation (Routine) - Closed Specialty Diagnoses / Procedures Referred By Tiki rosa Referred To Contact Neurology Diagnoses New daily persistent headache Carlos A Amezcua [address] [place] [address] Phone: tel: fax: [facility] - Neurology [address] [place] [phone] Phone: tel: fax: Referral ID Status Reason Start Date Expiration Date V isits Requested Visits Authorized [id number] Closed Specialty Services Required 10/21/2024 10/21/[address] REPAIRER Encounter Details Date Type Department Care Team (Latest Contact Info) Description 10/21/2024 Transcribe Orders [facility] - Centralized Scheduling [facility] [place] [id number] Carlos A Amezcua [address] [place] [address] New daily persistent headache Social [...] on file 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 Gender Identity Not on file Sexual Orientation Not on file documented as of this encounter Plan of Treatment Scheduled Referrals Name Type Priority Associated Diagnoses Order Schedule AMB REFERRAL TO NEUROLOGY Outpatient Referral Routine New daily persistent headache 1 Occurrences starting 10/21/2024 until 10/21/2025 documented as of this encounter Visit Diagnoses Diagnosis New daily persistent headache- Primary documented in this encounter Care Teams Inside Sales Consultant Relationship Specialty Start Date End Date Carlos A Amezcua [address] [place] [phone] PCP - General 11/06/17 documented as of this encounter
--- OUTSIDE RECORDS SUMMARY | 2025-09-04 18:57 | XMS_ITS | Clinical Summary ---
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 PS T: Report ID: [id number] Reading Location: [id number] us Son Francis MD IMG CT PROCEDURES Final Res ult * Screening Mammogram Bilateral W Luis M (10/10/2024 8:30 AM AUTOMOBILE BRAKE BONDER) Anatomical Region Laterality Modality Breast Bilateral Mammography Impressions 10/10/2024 9:25 AM AUTOMOBILE BRAKE BONDER BI-RADS ATLAS category (overall): 1 - Negative There is no mammographic evidence of malignancy. A 1 year screening mammogram is recommended. The patient has been or will be contacted. We recommend annual screening mammography for women at average risk of breast cancer beginning at age 40, based on guidelines of the [employer] (ACR Practice Parameter for the Performance of Screening and Diagnostic Mammography) and [employer]. For women with and elevated risk of breast cancer, please refer to the ACR Practice Parameter for specific screening recommendations. The patient will be entered into a reminder system with a target due date of 1 year for her next screening exam. Narrative 10/10/2024 9:25 AM AUTOMOBILE BRAKE BONDER Screening Mammogram Bilateral W Luis M: 10/10/24 [...] ORDERABLES F inal Result Performing Organization Address [facility] de Phone Number [place] [phone] [facility] [employer] [place], [place] [phone] * (ABNORMAL) Hemoglobin A1c (02/25/2022 4:32 AM CDT) [facility] Signature Hgb A1C 7.7(H) 4.0 - 5.6 % PREET Estimated Average Glucose 174 mg/dL PREET Comment: The ADA recommends reporting an estimated Average Glucose (eAG) with all Hemoglobin A1c results using the equation derived from a study of 507 normal and diabetic adults. Minority populations were underrepresented and children were not included. (Diabetes Care 31:5460-5843, 2008). The eAG is not equivalent to a fasting glucose. Blood 02/25/2022 4:32 AM CDT 02/25/2022 5:13 AM CDT Chichi Julian MD LAB BLOOD ORDERABLES F inal Result Performing Organization Address [facility] Co de Phone Number PREET [facility] [place] [address] * TNI with LIPID PANEL (06/18/2017 7:19 PM CDT) Troponin I < 0.300 0.000 - 0.300 ng/mL Comment: Reference using DESIREE Chemiluminescence Negative: Repeat in 4-6 hours as indicated. Triglycerides 90 0 - 199 mg/dL Comment:12 hr pc highly jenny mmended for Triglyceride Cholesterol 184 0 - 199 mg/dL 06/18/2017 8:01 PM [facility] HISTORICAL RESULTS Comment: Borderline: 200-239 High Risk: >239 HDL Cholesterol 53 40 - 60 mg/dL Comment: Major Risk < 40 mg/dL Moderate Risk 40-60 mg/dL Negative Risk > 60 mg/dL LDL Cholesterol, Calc 113 0 - 130 mg/dL Comment:High Risk > 159 mg/d L Cholesterol/HDL Ratio 3.5 06/18/2017 8:01 PM [facility] HISTORICAL RESULTS Comment: Cholesterol / HDL Ratio 3.5:1 or less is desirable. Cholesterol / HDL Ratio greater than 5:1 is considered higher risk for developing heart disease. 06/18/2017 7:19 PM CDT 06/18/2017 7:31 PM CDT Sue Freeman Bryson LAB BLOOD ORDERABLES Mary l Result [facility] HISTORICAL RESULTS from Last 3 Months or Most Recently Relevant to Health Maintenance Insurance [facility] Advance Directives For more information, please contact: [phone] * Full Code (Latest Code Status on File) Date Activated Date Inactivated Comments 02/24/2022 9:07 AM 03/03/2022 8:52 PM Care Teams Motor Racer Relationship Specialty Start Date End Date Carlos A Amezcua MD [address] [place] [id number] PCP - General Family Medicine 07/05/21
--- OUTSIDE RECORDS SUMMARY | 2025-09-04 18:57 | XMS_ITS | Clinical Summary ---
Author Organization [facility] [employer] Address [address] [place] [address] Care Team Providers Care Curing Oven Attendant Name Role Phone Carlos A Amezcua Primary Care Provider [phone] Source Comments [facility] [employer],non-owned Affiliates and Associated Physician Practices is amultiple site organization consisting of ambulatory clinics and hospital sitesin [place]. This disclosure is being madepursuant to the Care Everywhere program and may not contain all information available regarding this patient. Last updated 18.[facility] Allergies No known active allergies Medications * [...] 81 MG 2 7 Active nystatin (MYCOSTATIN) 172557 UNIT/ML suspension 0 7 Active ferrous sulfate [...] ointment 4 Active Blood Glucose Monitoring Suppl ([employer] Verio Flex System) w/Device KIT as directed [...] vitamin D, ergocalciferol , (Drisdol) 1.25 MG (81346 UT) capsule ergocalciferol (vitamin D2) 1,250 mcg (50,000 unit) capsule 1 Active ezetimibe (Zetia) 10 MG tablet ezetimibe 10 mg tablet 3 Active famotidine (Pepcid) 40 MG tablet 3 Active furosemide (Lasix) 20 MG tablet 5 Active OneTouch Verio test strip 5 Active HYDROcodone-ac etaminophen (Gilman) 7.5-325 MG tablet Take 1 (one) tablet [...] syndrome 08/21/2019 Atherosclerotic heart diseas e of [place] coronary artery without angina pectoris 08/21/2019 Type 2 diabetes mellitus with diabetic polyneuro tony 09/11/2017 Type 2 diabetes mellitus with diabetic neuropath y 07/30/2017 Other symptoms and signs inv olving the musculoskeletal system 07/21/2016 Anaclitic depression 02/13/2014 Angina pectoris 02/13/2014 Arthritis 02/13/2014 Encounters Date Type Department Care Team Description 07/21/2025 9:30 AM CDT Office Visit [facility] - Neurology [address] [place] [phone] Lizbeth Painter MD Idiopathic peripheral neuropathy (Primary [...] on file 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 Gender Identity Not on file Sexual Orientation [...] 7 - 26 mg/dL 07/14/2024 8:18 PM [facility] Creatinine 0.76 0.56 - 0.96 mg/dL 07/14/2024 8:18 PM [facility] Sodium 139 136 - 145 mmol/L 07/14/2024 8:18 PM [facility] Potassium 3.8 3.5 - 4.5 mmol/L 07/14/2024 8:18 PM [facility] Chloride 106 98 - 107 mmol/L 07/14/2024 8:18 PM [facility] CO2 27 22 - 29 mmol/L 07/14/2024 8:18 PM [facility] Glucose 143(H) 70 - 115 mg/dL 07/14/2024 8:18 PM [facility] Calcium 10.0 8.4 - 10.2 mg/dL 07/14/2024 8:18 PM [facility] Protein Total 7.8 6.0 - 8.3 g/dL 07/14/2024 8:18 PM [facility] Albumin 3.7 3.4 - 5.0 g/dL 07/14/2024 8:18 PM [facility] Bilirubin Total 0.3 0.2 - 1.2 mg/dL 07/14/2024 8:18 PM [facility] Alkaline Phosphatase 88 40 - 150 U/L 07/14/2024 8:18 PM [facility] ALT 7 5 - 55 U/L 07/14/2024 8:18 PM [facility] AST 15 5 - 34 U/L 07/14/2024 8:18 PM [facility] Anion Gap 6 6 - 16 07/14/2024 8:18 PM [facility] BUN/Creatinine Ratio 13 7 - 23 07/14/2024 8:18 PM [facility] Osmolality Calculated 290 275 - 295 mOsm/kg 07/14/2024 8:18 PM [facility] Albumin/Globulin Ratio 0.9(L) 1.1 - 2.3 07/14/2024 8:18 PM [facility] eGFR by CKD-EPI >90 >=90 mL/min/1.7 3 m2 07/14/2024 8:18 PM [facility] Blood BLOOD SPECIMEN / Unknown Venipuncture / Unknown 07/14/2024 7:53 PM CDT 07/14/2024 8:[address] [facility] Enrique Estrada PA-C LAB - CHEMISTRY OR DERABLES Final Result [facility] [address] [place] [address], [facility] [phone] from Last 3 Months or Most Recently Relevant to Health Maintenance Insurance [facility] Care Teams Curing Oven Attendant Relationship Specialty Start Date End Date Carlos A Amezcua [address] [place] [phone] PCP - General 11/06/17
--- OUTSIDE RECORDS SUMMARY | 2025-09-04 18:57 | XMS_ITS | Encounter Summary ---
Author Organization [facility] Health Address [address] [place] [address] Care Team Providers Care Training And Development Director Name Role Phone Carlos A Amezcua Primary Care Provider [phone] Encounter Details Date Type Department Care Team (Late st Contact Info) Description 10/31/2023 Telephone [facility] - Neurology [address] [place] [address], Formerly [facility] [place] [address] Lizbeth Painter MD [address] [place] [address] [place] [address] Social History Tobacco Use Types [...] on file Legal Sex Female 5:23 PM [employer] Gender Identity Not on file Sexual Orientation [...] can be refilled. Thank you, Jose Carlos [employer]ICE ENGINEER documented in this encounter Plan of Treatment Not on file documented as of this encounter Visit Diagnoses Not on filedocumented in this encounter Additional Health Concerns Infection Onset Date Last Indicated Resolved Time COVID-19 Under Investigation 07/14/2024 07/14/2024 07/14/2024 8:43 PM CDT documented as of this encounter Care Teams Training And Development Director Relationship Specialty Start Date End Date Carlos A Amezcua [address] [place] [id number] PCP - General 11/06/17 documented as of this encounter
[2025-09-04] MEDS: ONDANSETRON INJ 4 MG/2 ML VIAL IV PUSH (19:42)
[2025-09-04] MEDS: MORPHINE SULFATE (*CRX) 4 MG/ML INJ IV PUSH (19:43)
--- NOTE | 2025-09-04 21:05 | PC.NURSE ---
Notified Aly AYALA ([place]) that pt eloped from the emergency department with IV intact and they will be sending an officer out to check to make sure the IV is discontinued. Expected call back.
== END 2025-09-04 21:07 | disposition left against medical advice (07) ==
PROVIDERS: Nurse Practitioner Family; Emergency Provider Physician Assistant; PCP Family Medicine
DX: R10.13 Epigastric pain (principal)
CPT/HCPCS: 36415; 74177; 80053; 81001; 83690; 85025; 96374; 96375; 99284; J2270; J2405; Q9967